=== PATIENT | female | born 1955 | race Two or more races ===

== ENCOUNTER 2024-09-25 07:35 | Outpatient (CLI) | payer OTHER | END 2024-09-25 07:38 | disposition home or self-care (01) | LOC: NUCLEAR 07:35 | PROVIDERS: ATTEND Specialist | DX: I11.9 Hypertensive heart disease without heart failure (principal) | CPT/HCPCS: 78452; 93017; A9500 ==

== ENCOUNTER 2024-10-25 07:10 | Outpatient (CLI) | payer OTHER | END 2024-10-25 07:11 | disposition home or self-care (01) | LOC: NUCLEAR 07:10 | PROVIDERS: ATTEND Internal Medicine Hematology & Oncology | DX: M85.80 Other specified disorders of bone density and structure, unspecified site (principal) | CPT/HCPCS: 78315; A9503 ==